=== PATIENT | male | born 1935 | race Caucasian/White ===

== ENCOUNTER 2016-09-19 13:53 | Emergency (ER) | payer MEDICARE, OTHER ==
[~2016-09-19] VITALS: Ht 177.8 cm; Wt 71.0 kg
[~2016-09-19 13:53] MED LIST: ACET325T14 PO; APIX5TAB PO; ASPI-496 PO; ATEN25TA PO; ATOR20TA PO; DILT180C2 PO; DILT30TA27 PO; DONE5TAB30 PO; LEVO25TA4 PO; LISI2.5T PO; MULT-717 PO; OMEG-91 PO; RIVA3CAP4 PO; SENN-1 PO; SIMV20TA3 PO; UBID1CAP24 PO; VITA1TAB42 PO
[2016-09-19] MEDS ORDERED: ZIPRASIDONE 20 MG INJ IM ONE ×3 (15:00→16:00)
[2016-09-19] MEDS ORDERED: NICOTINE 21 MG/24 HR PATCH.TD24 TD ONE (15:00)
[2016-09-19 15:02] LABS: HEMATOCRIT 42.7 % (39.2-51.8); HEMOGLOBIN 14.3 g/dL (13.7-18.0); WHITE BLOOD COUNT 5.6 x10^3/uL (3.4-10)
[2016-09-19] MEDS ORDERED: NICOTINE 21 MG/24 HR PATCH.TD24 ONE (15:09)
[2016-09-19 15:18] LABS: ASPARTATE AMINO TRANSFERASE 24 U/L (15-37); BLOOD UREA NITROGEN 13 mg/dL (7-18)
[2016-09-19 15:20] LABS: IS PT STATUS REG ER OR PRE ER? YES
[2016-09-19 16:40] VITALS: BP 162/74
== END 2016-09-19 17:06 | disposition home or self-care (01) ==
LOC: ED 14:34
DX: R55 Syncope and collapse (principal); I48.91 Unspecified atrial fibrillation; E78.5 Hyperlipidemia, unspecified; E78.00 Pure hypercholesterolemia, unspecified; E03.9 Hypothyroidism, unspecified; I25.2 Old myocardial infarction; I10 Essential (primary) hypertension; Z86.73 Personal history of transient ischemic attack (TIA), and cerebral infarction without residual deficits
CPT/HCPCS: 36415; 71010; 80053; 81003; 84484; 85025; 85610; 85730; 93005; 96372; 99285; J3486

== ENCOUNTER 2017-01-12 18:26 | Inpatient (IN) | payer OTHER, MEDICARE ==
[~2017-01-12] VITALS: Ht 177.8 cm; Wt 59.4 kg
[~2017-01-12 18:26] MED LIST changes: -DONE5TAB30 PO; +DONE5TAB52 PO; -UBID1CAP24 PO; +UBID1CAP43 PO
[2017-01-12] MEDS ORDERED: HALOPERIDOL 5 MG/ML ONE (18:39)
[2017-01-12] MEDS ORDERED: HALOPERIDOL 5 MG/ML IM ONE (19:00)
[2017-01-12 19:42] LABS: HEMATOCRIT 39.7 % (39.2-51.8); HEMOGLOBIN 13.4 g/dL (13.7-18.0); WHITE BLOOD COUNT 4.4 x10^3/uL (3.4-10)
[2017-01-12 19:55] LABS: ASPARTATE AMINO TRANSFERASE 16 U/L (15-37); BLOOD UREA NITROGEN 10 mg/dL (7-18)
[2017-01-12 22:21] LABS: DAU SCREEN DISCLAIMER
[2017-01-13] MEDS ORDERED: HALOPERIDOL 5 MG/ML IM PRN
[2017-01-13] MEDS ORDERED: ONDANSETRON ODT 4 MG PO PRN
[2017-01-13] MEDS ORDERED: ACETAMINOPHEN 325 MG TABLET PO PRN
[2017-01-13] MEDS ORDERED: LEVOTHYROXINE 137 MCG TABLET PO SCH (09:00)
[2017-01-13] MEDS: APIXABAN 5 MG TABLET PO SCH ×2 (11:33→21:30)
[2017-01-13] MEDS: DILTIAZEM 90 MG CAP.ER.12H PO SCH (11:34)
[2017-01-13] MEDS ORDERED: LORazepam 0.5MG TABLET PO PRN (13:00)
[2017-01-13] MEDS: SERTRALINE 50MG TABLET PO SCH (14:36)
[2017-01-13] MEDS ORDERED: DONEPEZIL 5 MG TABLET PO SCH (21:00)
[2017-01-13] MEDS ORDERED: QUETIAPINE 25MG TABLET PO SCH (21:00)
[2017-01-13] MEDS: ATORVASTATIN 20 MG TABLET PO SCH ×2 (21:00→21:30)
[2017-01-13] MEDS: QUETIAPINE 25MG TABLET PO SCH (21:30)
[2017-01-13 22:00] VITALS: BP 167/81
[2017-01-13] MEDS: HALOPERIDOL 5 MG/ML IM PRN (22:23)
[2017-01-14] VITALS (8 sets, daily range): BP systolic 135–217; BP diastolic 58–80
[2017-01-14] MEDS ORDERED: hydrALAzine 20 MG/ML, 1ML IV ONE (04:00)
[2017-01-14] MEDS: LEVOTHYROXINE 137 MCG TABLET PO SCH (06:34)
[2017-01-14] MEDS: SERTRALINE 50MG TABLET PO SCH (09:00)
[2017-01-14] MEDS: DILTIAZEM 90 MG CAP.ER.12H PO SCH (09:00)
[2017-01-14] MEDS: APIXABAN 5 MG TABLET PO SCH ×2 (09:00→21:03)
[2017-01-14] MEDS: QUETIAPINE 25MG TABLET PO SCH (21:03)
[2017-01-14] MEDS: ATORVASTATIN 20 MG TABLET PO SCH (21:03)
[2017-01-15 00:34] VITALS: BP 152/64
[2017-01-15 00:37] VITALS: BP 101/70
[2017-01-15] MEDS: LEVOTHYROXINE 137 MCG TABLET PO SCH (07:05)
[2017-01-15] MEDS: DILTIAZEM 90 MG CAP.ER.12H PO SCH (09:00)
[2017-01-15 09:30] VITALS: BP 156/80
[2017-01-15] MEDS: SERTRALINE 50MG TABLET PO SCH (10:16)
[2017-01-15] MEDS: APIXABAN 5 MG TABLET PO SCH ×2 (10:16→21:37)
[2017-01-15] MEDS: DILTIAZEM 30 MG TABLET PO SCH ×3 (12:36→21:38)
[2017-01-15 15:36] VITALS: BP 162/61
[2017-01-15] MEDS: HALOPERIDOL 5 MG/ML IM PRN (15:49)
[2017-01-15] MEDS ORDERED: QUETIAPINE 25MG TABLET PO SCH (21:00)
[2017-01-15] MEDS: LACTULOSE 10 GM/15 ML UDC PO SCH (21:00)
[2017-01-15] MEDS: QUETIAPINE 25MG TABLET PO SCH (21:37)
[2017-01-15] MEDS: ATORVASTATIN 20 MG TABLET PO SCH (21:37)
[2017-01-15 23:00] VITALS: BP 145/65
[2017-01-16 03:12] VITALS: BP 129/61
[2017-01-16] MEDS: LEVOTHYROXINE 137 MCG TABLET PO SCH (06:05)
[2017-01-16 06:42] VITALS: BP 156/65
[2017-01-16] MEDS: DILTIAZEM 30 MG TABLET PO SCH ×3 (09:23→20:52)
[2017-01-16] MEDS: QUETIAPINE 25MG TABLET PO SCH ×3 (09:23→21:00)
[2017-01-16] MEDS: APIXABAN 5 MG TABLET PO SCH ×2 (09:23→20:52)
[2017-01-16] MEDS: SERTRALINE 50MG TABLET PO SCH (09:23)
[2017-01-16] MEDS: POLYETHYLENE GLYCOL 17 GM PACKET PO SCH (09:24)
[2017-01-16] MEDS: LACTULOSE 10 GM/15 ML UDC PO SCH ×2 (09:33→20:52)
[2017-01-16 12:30] VITALS: BP 120/61
[2017-01-16 20:47] VITALS: BP 152/81
[2017-01-16] MEDS: ATORVASTATIN 20 MG TABLET PO SCH (20:52)
[2017-01-17 01:58] VITALS: BP 161/67
[2017-01-17] MEDS: LEVOTHYROXINE 137 MCG TABLET PO SCH (06:00)
[2017-01-17 06:40] VITALS: BP 147/72
[2017-01-17] MEDS: DILTIAZEM 30 MG TABLET PO SCH ×3 (08:52→20:53)
[2017-01-17] MEDS: POLYETHYLENE GLYCOL 17 GM PACKET PO SCH (08:52)
[2017-01-17] MEDS: APIXABAN 5 MG TABLET PO SCH ×2 (08:52→20:54)
[2017-01-17] MEDS: LACTULOSE 10 GM/15 ML UDC PO SCH ×3 (08:52→20:54)
[2017-01-17] MEDS: SERTRALINE 50MG TABLET PO SCH (08:52)
[2017-01-17] MEDS: QUETIAPINE 25MG TABLET PO SCH ×2 (08:53→20:54)
[2017-01-17 14:10] VITALS: BP 129/62
[2017-01-17] MEDS: ATORVASTATIN 20 MG TABLET PO SCH (20:53)
[2017-01-17 20:54] VITALS: BP 147/60
[2017-01-18] MEDS ORDERED: BISACODYL 10 MG SUPP PR PRN (01:30)
[2017-01-18] MEDS: HALOPERIDOL 5 MG/ML IM PRN (03:13)
[2017-01-18 04:00] VITALS: BP 154/73
[2017-01-18] MEDS: LEVOTHYROXINE 137 MCG TABLET PO SCH (05:31)
[2017-01-18 07:01] VITALS: BP 144/71
[2017-01-18] MEDS: LACTULOSE 10 GM/15 ML UDC PO SCH ×2 (08:41→19:18)
[2017-01-18] MEDS: QUETIAPINE 25MG TABLET PO SCH ×2 (09:00→19:18)
[2017-01-18] MEDS: APIXABAN 5 MG TABLET PO SCH ×2 (09:00→19:18)
[2017-01-18] MEDS: SERTRALINE 50MG TABLET PO SCH (09:00)
[2017-01-18] MEDS: POLYETHYLENE GLYCOL 17 GM PACKET PO SCH (09:00)
[2017-01-18] MEDS: DILTIAZEM 30 MG TABLET PO SCH (09:00)
[2017-01-18 15:26] VITALS: BP 121/71
[2017-01-19 04:25] VITALS: BP 135/70
[2017-01-19] MEDS: LEVOTHYROXINE 137 MCG TABLET PO SCH (06:00)
[2017-01-19 08:10] VITALS: BP 155/80
[2017-01-19] MEDS: APIXABAN 5 MG TABLET PO SCH (08:13)
[2017-01-19] MEDS: QUETIAPINE 25MG TABLET PO SCH (08:13)
[2017-01-19] MEDS: POLYETHYLENE GLYCOL 17 GM PACKET PO SCH (08:13)
[2017-01-19] MEDS: SERTRALINE 50MG TABLET PO SCH (08:16)
[2017-01-19] MEDS: LACTULOSE 10 GM/15 ML UDC PO SCH (09:00)
[2017-01-19] MEDS ORDERED: SERT50TA5 PO (11:51)
[2017-01-19] MEDS ORDERED: HALO5VIA2 IM (11:51)
[2017-01-19] MEDS ORDERED: QUET25TA PO (11:51)
[2017-01-19] MEDS ORDERED: QUETIAPINE 25MG TABLET PO PRN (12:30)
== END 2017-01-19 12:31 | DRG 56 ==
LOC: ED 18:44 → EDIP 22:29 → 4EST 23:56
PROVIDERS: ADMIT Hospitalist; ATTEND Hospitalist
DX: G30.9 Alzheimer's disease, unspecified (principal); G93.41 Metabolic encephalopathy; F02.81 Dementia in other diseases classified elsewhere, unspecified severity, with behavioral disturbance; D68.69 Other thrombophilia; I50.32 Chronic diastolic (congestive) heart failure; I11.0 Hypertensive heart disease with heart failure; I48.91 Unspecified atrial fibrillation; E89.0 Postprocedural hypothyroidism; I10 Essential (primary) hypertension; E78.00 Pure hypercholesterolemia, unspecified; E78.5 Hyperlipidemia, unspecified; F17.200 Nicotine dependence, unspecified, uncomplicated; I25.10 Atherosclerotic heart disease of native coronary artery without angina pectoris; I25.2 Old myocardial infarction; K59.00 Constipation, unspecified; R32 Unspecified urinary incontinence; Z51.5 Encounter for palliative care; Z78.1 Physical restraint status; Z79.899 Other long term (current) drug therapy; Z82.49 Family history of ischemic heart disease and other diseases of the circulatory system; Z86.73 Personal history of transient ischemic attack (TIA), and cerebral infarction without residual deficits; Z95.1 Presence of aortocoronary bypass graft; Z91.81 History of falling; Z90.49 Acquired absence of other specified parts of digestive tract
CPT/HCPCS: 36415; 70450; 71010; 74000; 80053; 80307; 81003; 84439; 84443; 85025; 96372; 92523-GN; G0479; J0360; J1630